=== PATIENT | female | born 1955 | race Caucasian/White ===

== ENCOUNTER 2022-07-29 07:26 | Emergency (ER) | payer MEDICARE, BC ==
[2022-07-29] MEDS ORDERED: Sodium Chloride 0.9% 10 ML Syringe FLUSH PRN (07:49)
[2022-07-29] MEDS ORDERED: Adenosine 6 MG/2 ML SDV IVPUSH ONE (07:50)
[2022-07-29] MEDS ORDERED: Sodium Chloride 0.9% 1,000 ML IV SCH (08:00)
[2022-07-29] MEDS ORDERED: Diltiazem 25 MG/5 ML SDV IVPUSH ONE ×2 (08:02→10:35)
[2022-07-29] MEDS ORDERED: Diltiazem 125 MG in Sodium Chloride 0.9% 100 ML IV SCH (08:15)
[2022-07-29 08:21] LABS: ESTIMATED GFR 80 mL/min (>60)
[2022-07-29] MEDS ORDERED: Diltiazem IR 60 MG Tab PO ONE (13:00)
== END 2022-07-29 13:43 | disposition home or self-care (01) ==
LOC: JD.ED 07:26
DX: I48.91 Unspecified atrial fibrillation (principal); Z88.5 Allergy status to narcotic agent; Z88.0 Allergy status to penicillin
CPT/HCPCS: 36415; 80053; 83735; 84443; 84484; 85025; 93005; 96361; 96365; 96366; 96375; 96376; 99285-25; J0153; J3490; J7030

== ENCOUNTER 2022-12-06 09:38 | Emergency (ER) | payer MEDICARE, BC ==
[2022-12-06] MEDS ORDERED: Sodium Chloride 0.9% 10 ML Syringe FLUSH PRN (10:09)
[2022-12-06 10:28] LABS: BASOPHILS ABSOLUTE AUTO 0.04 K/mm3 (0.01-0.08); BASOPHILS PERCENT AUTO 0.6 % (0.1-1.2); EOSINOPHILS ABSOLUTE AUTO 0.42 K/mm3 (0.04-0.36); EOSINOPHILS PERCENT AUTO 6.2 (0.7-5.8); HEMATOCRIT 44.6 % (34.1-44.9); IMMATURE GRAN ABSOLUTE AUTO 0.01 K/mm3 (0.00-0.10); IMMATURE GRAN PERCENT AUTO 0.1 % (<=1.0); LYMPHOCYTES ABSOLUTE AUTO 2.48 K/mm3 (1.18-3.74); LYMPHOCYTES PERCENT AUTO 36.5 % (19.3-51.7); MEAN CORPUSCULAR HEMOGLOBIN 31.6 pg (25.6-32.2); MEAN CORPUSCULAR HGB CONC 33.6 g/dl (32.2-35.5); MEAN CORPUSCULAR VOLUME 94.1 fl (79.4-94.8); MEAN PLATELET VOLUME 8.9 fl (9.4-12.3); MONOCYTES ABSOLUTE AUTO 0.45 K/mm3 (0.24-0.36); MONOCYTES PERCENT AUTO 6.6 % (4.7-12.5); NEUTROPHILS ABSOLUTE AUTO 3.39 K/mm3 (1.56-6.13); PLATELET COUNT,PLT 266 K/mm3 (182-369); RED BLOOD CELL COUNT 4.74 M/mm3 (3.98-5.22); WHITE BLOOD CELL COUNT,WBC 6.79 K/mm3 (3.98-10.04)
[2022-12-06 10:36] LABS: APPEARANCE,URINE CLEAR (Clear); BILIRUBIN,URINE NEGATIVE (Negative); COLOR,URINE LIGHT YELLOW (Yellow); GLUCOSE,URINE 2+ (Negative); KETONES,URINE NEGATIVE (Negative); LEUKOCYTE ESTERASE,URINE NEGATIVE (Negative); NITRITE,URINE NEGATIVE (Negative); OCCULT BLOOD,URINE 1+ (Negative); PROTEIN,URINE NEGATIVE (Negative); UROBILINOGEN,URINE 0.2 (0.2-1.0)
[2022-12-06 10:57] LABS: BACTERIA,URINE RARE /hpf (FEW); MUCUS,URINE NOT SEEN /hpf (FEW); RBC,URINE 0-5 /hpf (0-5); SQUAMOUS EPITHELIAL CELLS,UR 0-5 /hpf (0-5); WBC,URINE 0-5 /hpf (0-5)
[2022-12-06 11:09] LABS: ALANINE AMINOTRANSFERASE,ALT 35 U/L (14-59); ALBUMIN 3.6 g/dl (3.4-5.0); ALKALINE PHOSPHATASE 98 U/L (46-116); ASPARTATE AMNIOTRANSFERASE,AST 22 U/L (15-37); BILIRUBIN TOTAL 0.4 mg/dL (0.2-1.0); BLOOD UREA NITROGEN,BUN 19 mg/dL (7-18); BUN/CREATININE RATIO 17.3 (14-18); C-REACTIVE PROTEIN <0.2 mg/dL (<1.0); CALCIUM 9.2 mg/dL (8.5-10.1); CARBON DIOXIDE,CO2 26 mEq/L (21-32); CHLORIDE,CL 103 mEq/L (98-107); CREATININE 1.1 mg/dL (0.55-1.02); EST CRCL DRUG DOSING (CG) 36.42 mL/min; ESTIMATED GFR 54 mL/min (>60); GLUCOSE RANDOM 188 mg/dL (70-99); MAGNESIUM 1.6 mg/dL (1.8-2.4); PROTEIN TOTAL,TP 7.2 g/dl (6.4-8.2); SODIUM,NA 137 mEq/L (136-145); TROPONIN I HIGH SENSITIVITY < 4 pg/mL (<=51); TSH 1.626 uIU/mL (0.358-3.74)
[2022-12-06] MEDS ORDERED: Magnesium Sulfate/Water 4 GM in Premix Bag 1 BAG IV ONE (11:39)
== END 2022-12-06 16:15 | disposition home or self-care (01) ==
LOC: JD.ED 09:38
DX: R00.2 Palpitations (principal); E83.42 Hypomagnesemia; E11.9 Type 2 diabetes mellitus without complications; I48.91 Unspecified atrial fibrillation; Z79.01 Long term (current) use of anticoagulants; Z88.0 Allergy status to penicillin; Z88.5 Allergy status to narcotic agent
CPT/HCPCS: 36415; 71045; 80053; 81001; 83735; 83880; 84443; 84484; 85025; 85379; 86140; 93005; 96365; 96366; 99284; J3475; J3490; 93010

== ENCOUNTER 2022-12-21 08:01 | Emergency (ER) | payer MEDICARE, BC ==
[2022-12-21] MEDS ORDERED: Sodium Chloride 0.9% 10 ML Syringe FLUSH PRN (08:26)
[2022-12-21] MEDS ORDERED: Diltiazem 25 MG/5 ML SDV IVPUSH ONE (08:27)
[2022-12-21] MEDS ORDERED: Diltiazem 125 MG in Sodium Chloride 0.9% 100 ML IV SCH (08:30)
[2022-12-21 09:04] LABS: BASOPHILS ABSOLUTE AUTO 0.03 K/mm3 (0.01-0.08); BASOPHILS PERCENT AUTO 0.4 % (0.1-1.2); EOSINOPHILS ABSOLUTE AUTO 0.45 K/mm3 (0.04-0.36); EOSINOPHILS PERCENT AUTO 6.3 (0.7-5.8); HEMATOCRIT 47.2 % (34.1-44.9); HEMOGLOBIN 16.1 gm/dl (11.2-15.7); IMMATURE GRAN ABSOLUTE AUTO 0.02 K/mm3 (0.00-0.10); IMMATURE GRAN PERCENT AUTO 0.3 % (<=1.0); LYMPHOCYTES ABSOLUTE AUTO 2.82 K/mm3 (1.18-3.74); LYMPHOCYTES PERCENT AUTO 39.5 % (19.3-51.7); MEAN CORPUSCULAR HEMOGLOBIN 31.9 pg (25.6-32.2); MEAN CORPUSCULAR HGB CONC 34.1 g/dl (32.2-35.5); MEAN CORPUSCULAR VOLUME 93.5 fl (79.4-94.8); MEAN PLATELET VOLUME 9.4 fl (9.4-12.3); MONOCYTES PERCENT AUTO 9.8 % (4.7-12.5); NEUTROPHILS ABSOLUTE AUTO 3.12 K/mm3 (1.56-6.13); NEUTROPHILS PERCENT AUTO 43.7 % (34.0-71.1); PLATELET COUNT,PLT 291 K/mm3 (182-369); RED BLOOD CELL COUNT 5.05 M/mm3 (3.98-5.22); WHITE BLOOD CELL COUNT,WBC 7.14 K/mm3 (3.98-10.04)
[2022-12-21 09:26] LABS: ALBUMIN 4.1 g/dl (3.4-5.0); BILIRUBIN TOTAL 0.4 mg/dL (0.2-1.0); BUN/CREATININE RATIO 26.7 (14-18); CALCIUM 10.2 mg/dL (8.5-10.1); CREATININE 0.9 mg/dL (0.55-1.02); EST CRCL DRUG DOSING (CG) 44.52 mL/min; MAGNESIUM 2.2 mg/dL (1.8-2.4); PROTEIN TOTAL,TP 8.2 g/dl (6.4-8.2); TSH 7.033 uIU/mL (0.358-3.74)
== END 2022-12-21 11:46 | disposition home or self-care (01) ==
LOC: JD.ED 08:01
DX: I48.91 Unspecified atrial fibrillation (principal); E78.00 Pure hypercholesterolemia, unspecified; E11.9 Type 2 diabetes mellitus without complications; Z88.5 Allergy status to narcotic agent; Z88.0 Allergy status to penicillin; Z79.01 Long term (current) use of anticoagulants
CPT/HCPCS: 36415; 71045; 80053; 83735; 84439; 84443; 84484; 85025; 93005; 96365; 96366; 96376; 99285; J3490; 93010; 99284

== ENCOUNTER 2023-01-18 16:03 | Emergency (ER) | payer MEDICARE, BC ==
[2023-01-18] MEDS ORDERED: Sodium Chloride 0.9% 10 ML Syringe FLUSH PRN (16:26)
[2023-01-18 16:50] LABS: BASOPHILS ABSOLUTE AUTO 0.04 K/mm3 (0.01-0.08); BASOPHILS PERCENT AUTO 0.4 % (0.1-1.2); EOSINOPHILS ABSOLUTE AUTO 0.31 K/mm3 (0.04-0.36); EOSINOPHILS PERCENT AUTO 3.2 (0.7-5.8); HEMATOCRIT 45.8 % (34.1-44.9); HEMOGLOBIN 15.5 gm/dl (11.2-15.7); IMMATURE GRAN ABSOLUTE AUTO 0.02 K/mm3 (0.00-0.10); IMMATURE GRAN PERCENT AUTO 0.2 % (<=1.0); LYMPHOCYTES ABSOLUTE AUTO 3.67 K/mm3 (1.18-3.74); LYMPHOCYTES PERCENT AUTO 37.4 % (19.3-51.7); MEAN CORPUSCULAR HEMOGLOBIN 31.5 pg (25.6-32.2); MEAN CORPUSCULAR HGB CONC 33.8 g/dl (32.2-35.5); MEAN CORPUSCULAR VOLUME 93.1 fl (79.4-94.8); MEAN PLATELET VOLUME 9.2 fl (9.4-12.3); MONOCYTES ABSOLUTE AUTO 0.97 K/mm3 (0.24-0.36); MONOCYTES PERCENT AUTO 9.9 % (4.7-12.5); NEUTROPHILS ABSOLUTE AUTO 4.79 K/mm3 (1.56-6.13); NEUTROPHILS PERCENT AUTO 48.9 % (34.0-71.1); PLATELET COUNT,PLT 299 K/mm3 (182-369); RED BLOOD CELL COUNT 4.92 M/mm3 (3.98-5.22)
[2023-01-18 16:52] LABS: PROTHROMBIN TIME 22.2 SECONDS (9.7-12.0)
[2023-01-18 16:53] LABS: D-DIMER QUANTITATIVE < 0.19 mg/L (0.19-0.50)
[2023-01-18 16:57] LABS: A/G RATIO 1.1 (1-2); ALBUMIN 3.8 g/dl (3.4-5.0); ANION GAP 17.9 (5-15); BILIRUBIN TOTAL 0.3 mg/dL (0.2-1.0); CALCIUM 9.5 mg/dL (8.5-10.1); EST CRCL DRUG DOSING (CG) 40.07 mL/min; MAGNESIUM 1.9 mg/dL (1.8-2.4); PROTEIN TOTAL,TP 7.3 g/dl (6.4-8.2)
[2023-01-18 17:05] LABS: POTASSIUM,K 3.9 mEq/L (3.5-5.1)
== END 2023-01-18 18:22 | disposition home or self-care (01) ==
LOC: JD.ED 16:03
DX: I48.91 Unspecified atrial fibrillation (principal); E11.9 Type 2 diabetes mellitus without complications; Z88.8 Allergy status to other drugs, medicaments and biological substances; Z88.5 Allergy status to narcotic agent; Z88.0 Allergy status to penicillin
CPT/HCPCS: 36415; 71045; 71045-26; 80053; 83735; 84484; 85025; 85379; 85610; 93005; 93010; 99283; 99285

== ENCOUNTER 2023-06-30 07:03 | Day surgery (SDC) | payer MEDICARE, BC ==
[~2023-06-30 07:03] MED LIST: Lactated Ringers 1,000 ML IV SCH; Sodium Chloride 0.9% 10 ML Syringe FLUSH PRN; Sodium Chloride 0.9% 10 ML Syringe FLUSH SCH
[2023-06-30] MEDS ORDERED: Propofol 200 MG/20 ML SDV ONE (07:15)
[2023-06-30] MEDS ORDERED: Ondansetron 4 MG/2 ML SDV ONE (07:16)
[2023-06-30] MEDS ORDERED: Midazolam 1 MG/ML 2 ML SDV ONE (07:17)
[2023-06-30 07:54] LABS: INR 1.03
[2023-06-30] MEDS ORDERED: ePHEDrine 50 MG/ML SDV ONE (08:26)
== END 2023-06-30 09:54 | disposition home or self-care (01) ==
LOC: JD.SDS 07:03
PROVIDERS: ATTEND Surgery
DX: R19.7 Diarrhea, unspecified (principal); I10 Essential (primary) hypertension; E11.9 Type 2 diabetes mellitus without complications; I48.0 Paroxysmal atrial fibrillation; E03.9 Hypothyroidism, unspecified; E78.00 Pure hypercholesterolemia, unspecified; Z79.01 Long term (current) use of anticoagulants; Z79.890 Hormone replacement therapy; Z79.85 Long-term (current) use of injectable non-insulin antidiabetic drugs; Z79.899 Other long term (current) drug therapy; Z88.0 Allergy status to penicillin; Z88.1 Allergy status to other antibiotic agents; Z88.5 Allergy status to narcotic agent
CPT/HCPCS: 36415; 45380; 82947; 85610; J2250; J2405; J2704; J7120; J3490

== ENCOUNTER 2024-02-05 11:12 | Emergency (ER) | payer MEDICARE, BC | END 2024-02-05 12:43 | disposition home or self-care (01) | LOC: JD.ED 11:12 | DX: S93.601A Unspecified sprain of right foot, initial encounter (principal); I48.91 Unspecified atrial fibrillation; E78.00 Pure hypercholesterolemia, unspecified; Z95.0 Presence of cardiac pacemaker; E11.9 Type 2 diabetes mellitus without complications; E03.9 Hypothyroidism, unspecified; Z90.49 Acquired absence of other specified parts of digestive tract; Z88.1 Allergy status to other antibiotic agents; Z88.5 Allergy status to narcotic agent; Z88.0 Allergy status to penicillin; Z88.8 Allergy status to other drugs, medicaments and biological substances; Z79.01 Long term (current) use of anticoagulants; Z79.899 Other long term (current) drug therapy; Z79.890 Hormone replacement therapy; W10.9XXA Fall (on) (from) unspecified stairs and steps, initial encounter | CPT/HCPCS: 73630-26-RT; 73630-RT; 99283 ==

== ENCOUNTER 2024-06-22 07:00 | Day surgery (SDC) | payer MEDICARE, BC ==
[~2024-06-22 07:00] MED LIST changes: -Lactated Ringers 1,000 ML IV SCH; +Lidocaine 1% PF 2 ML SDV INJECT SCH; -Sodium Chloride 0.9% 10 ML Syringe FLUSH PRN; -Sodium Chloride 0.9% 10 ML Syringe FLUSH SCH
[2024-06-22] MEDS: Polymyxin B/Trimethoprim 10 ML Bottle EYERT SCH (07:11)
[2024-06-22] MEDS: Brimonidine 0.2% Ophth Soln 5 ML Bottle EYERT SCH (07:15)
[2024-06-22] MEDS: Phenylephrine 2.5% Ophth Soln 2 ML Bot EYERT SCH (07:20)
[2024-06-22] MEDS: Tropicamide 1% Ophth Soln 3 ML Bottle EYERT SCH (07:26)
[2024-06-22] MEDS: Tetracaine HCl/PF 0.5% 4 ML Bottle EYEBOTH SCH (07:59)
[2024-06-22] MEDS: Cefuroxime 10 MG/ML SYRINGE EYERT SCH (08:53)
[2024-06-22] MEDS: Pilocarpine 4% Ophth Soln 15 ML Bot EYERT SCH (08:54)
== END 2024-06-22 09:05 | disposition home or self-care (01) ==
LOC: JD.SDS 07:00
PROVIDERS: ATTEND Ophthalmology
DX: E11.36 Type 2 diabetes mellitus with diabetic cataract (principal); H25.813 Combined forms of age-related cataract, bilateral; I10 Essential (primary) hypertension; E78.2 Mixed hyperlipidemia; H40.033 Anatomical narrow angle, bilateral; H21.81 Floppy iris syndrome; H16.103 Unspecified superficial keratitis, bilateral; H16.223 Keratoconjunctivitis sicca, not specified as Sjogren's, bilateral; H02.831 Dermatochalasis of right upper eyelid; H02.834 Dermatochalasis of left upper eyelid; H18.413 Arcus senilis, bilateral; Z79.899 Other long term (current) drug therapy; Z88.0 Allergy status to penicillin
CPT/HCPCS: A9270-GY; J0697; J3490

== ENCOUNTER 2024-07-20 07:00 | Day surgery (SDC) | payer MEDICARE, BC ==
[2024-07-20] MEDS: Polymyxin B/Trimethoprim 10 ML Bottle EYELF SCH (07:01)
[2024-07-20] MEDS: Brimonidine 0.2% Ophth Soln 5 ML Bottle EYELF SCH (07:09)
[2024-07-20] MEDS: Phenylephrine 2.5% Ophth Soln 2 ML Bot EYELF SCH (07:14)
[2024-07-20] MEDS: Tropicamide 1% Ophth Soln 3 ML Bottle EYELF SCH (07:19)
[2024-07-20] MEDS: Lidocaine 1% PF 2 ML SDV INJECT SCH (09:28)
[2024-07-20] MEDS: Tetracaine HCl/PF 0.5% 4 ML Bottle EYEBOTH SCH (09:29)
[2024-07-20] MEDS: Cefuroxime 10 MG/ML SYRINGE EYELF SCH (09:42)
[2024-07-20] MEDS: Pilocarpine 4% Ophth Soln 15 ML Bot EYELF SCH (09:43)
== END 2024-07-20 09:52 ==
LOC: JD.SDS 07:00
PROVIDERS: ATTEND Ophthalmology
DX: E11.36 Type 2 diabetes mellitus with diabetic cataract (principal); H25.812 Combined forms of age-related cataract, left eye; H52.31 Anisometropia; H40.032 Anatomical narrow angle, left eye; I10 Essential (primary) hypertension; E78.2 Mixed hyperlipidemia; I48.91 Unspecified atrial fibrillation; E03.9 Hypothyroidism, unspecified; Z79.01 Long term (current) use of anticoagulants; Z79.890 Hormone replacement therapy; Z79.899 Other long term (current) drug therapy; Z88.1 Allergy status to other antibiotic agents; Z88.0 Allergy status to penicillin; Z88.5 Allergy status to narcotic agent
CPT/HCPCS: 66984; A9270; J0697; 00142; 99100; J3490; V2632